=== PATIENT | male | born 1985 | race American Indian/Alaskan Native ===

== ENCOUNTER 2019-12-26 22:33 | Inpatient (IN) | payer OTHER ==
[2019-12-26] MEDS ORDERED: SODIUM CHLORIDE 0.9% 1000 ML IV SOLN IV ONE (22:52)
[2019-12-26] MEDS ORDERED: ONDANSETRON 4 MG/2 ML INJ IV ONE (22:53)
[2019-12-26] MEDS ORDERED: ACETAMINOPHEN 500 MG TAB PO ONE (22:54)
[2019-12-26] MEDS ORDERED: PIPERACILLIN/TAZOBACTAM 3.375 3.375 GM/50 ML BAG IV ONE (22:54)
--- NOTE | 2019-12-26 22:58 | Emergency Department Report ---
ED General Adult HPI - General Chief complaint: Nausea/Vomiting/Diarrhea Stated complaint: FLU SYMPTOMS Time Seen by Provider: 12/26/19 22:52 Source: patient Mode of arrival: Ambulatory Limitations: No Limitations - History of Present Illness Initial comments: Patient is 34 years old male with no significant past medical history. Patient presented to the ER complaining of fever, chills, cough, nausea and vomiting and diarrhea for the last 2 days. Patient stated the symptoms started approximately 1 week ago with generalized fatigue and loss of appetite but since yesterday he started to have fever. Patient stated that his brother was diagnosed yesterday with influenza and pneumonia. Patient denied any recent travel outside [facility]. He also denied any contact with confirmed or suspected cases of COVID-19 at this moment however patient stated that he work at [email or web address]. - Related Data Allergies Allergy/AdvReac Type Severity Reaction Status Date / Time No Known Allergies Allergy Verified 12/26/19 22:38 ED Review of Systems ROS: Stated complaint: FLU SYMPTOMS Other details as noted in HPI Comment: All other systems reviewed and negative Constitutional: chills, fever Respiratory: cough. denies: orthopnea, shortness of breath, SOB with exertion, SOB at rest Cardiovascular: palpitations. denies: chest pain Gastrointestinal: nausea, vomiting, diarrhea. denies: abdominal pain, constipation, hematochezia Musculoskeletal: denies: back pain Neurological: weakness. denies: headache, numbness, paresthesias, confusion, abnormal gait ED Past Medical Hx - Past Medical History Previous Medical History?: No - Surgical History Past Surgical History?: Yes Additional Surgical History: nasal sinus - Social History Smoking Status: Never Smoker Substance Use Type: None ED Physical Exam - General Limitations: No Limitations General appearance: alert, in no apparent distress - Head Head exam: Present: atraumatic, normocephalic, normal inspection - Eye Eye exam: Present: normal appearance, PERRL - ENT ENT exam: Present: mucous membranes dry - Neck Neck exam: Present: normal inspection, full ROM. Absent: tenderness, meningismus, lymphadenopathy, thyromegaly - Respiratory Respiratory exam: Present: normal lung sounds bilaterally - Cardiovascular Cardiovascular Exam: Present: tachycardia. Absent: systolic murmur, diastolic murmur - GI/Abdominal GI/Abdominal exam: Present: soft, normal bowel sounds. Absent: distended, tenderness, guarding, rebound, rigid, organomegaly, mass, bruit, pulsatile mass, hernia - Back Exam Back exam: Present: normal inspection, full ROM. Absent: CVA tenderness (R), CVA tenderness (L), muscle spasm, paraspinal tenderness, vertebral tenderness - Neurological Exam Neurological exam: Present: alert, oriented X3, CN II-XII intact, normal gait, reflexes normal. Absent: motor sensory deficit - Psychiatric Psychiatric exam: Present: normal mood - Skin Skin exam: Present: warm, intact, normal color ED Course Vital Signs 12/26/19 12/26/19 12/26/19 22:38 22:41 23:00 Temperature 101.4 F H 101.4 F H Pulse Rate 122 H 122 H 107 H Respiratory 18 18 23 Rate Blood Pressure 134/78 134/78 O2 Sat by Pulse 92 92 Oximetry 12/26/19 12/26/19 12/26/19 23:16 23:30 23:40 Temperature Pulse Rate 116 H 99 H 98 H Respiratory 16 29 H 33 H Rate Blood Pressure O2 Sat by Pulse 95 94 94 Oximetry 12/26/19 12/27/19 12/27/19 23:46 00:00 00:16 Temperature Pulse Rate 95 H 96 H 96 H Respiratory 32 H 19 23 Rate Blood Pressure 101/65 101/65 O2 Sat by Pulse 94 94 95 Oximetry 12/27/19 12/27/19 12/27/19 00:30 00:40 00:46 Temperature 98.5 F Pulse Rate 93 H 96 H Respiratory 18 19 Rate Blood Pressure 101/65 101/65 O2 Sat by Pulse 94 94 Oximetry 12/27/19 01:00 Temperature Pulse Rate 89 Respiratory 33 H Rate Blood Pressure 105/61 O2 Sat by Pulse Oximetry ED Medical Decision Making - Lab Data Result diagrams: 12/26/19 Unknown 12/26/19 Unknown - EKG Data -: EKG Interpreted by Wi EKG shows normal: sinus rhythm Rate: tachycardia - EKG Data Interpretation: no acute changes - Radiology Data Radiology results: report reviewed - Medical Decision Making Patient is 34 years old male with no significant past medical history. Patient presented to the ER complaining of fever, chills, cough, nausea and vomiting and diarrhea for the last 2 days. Patient stated the symptoms started approximately 1 week ago with generalized fatigue and loss of appetite but since yesterday he started to have fever. Patient stated that his brother was diagnosed yesterday with influenza and pneumonia. Patient denied any recent travel outside [facility]. He also denied any contact with confirmed or suspected cases of COVID-19 at this moment however patient stated that he work at [email or web address]. Sepsis protocol initiated. Patient received normal saline, Zofran, Zosyn. Influenza test is negative. Chest x-ray showed bilateral lower lobe pneumonia. Online survey for suspected COVID-19 submitted by me. Patient placed in a negative pressure room in the emergency room. I discussed the patient with Dr. Paniagua, he agreed to admit the patient to medical service for further management. Critical Care Time: Yes Critical care time in (mins) excluding proc time.: 30 Critical care attestation.: If time is entered above; I have spent that time in minutes in the direct care of this critically ill patient, excluding procedure time. ED Disposition Clinical Impression: Pneumonia of both lower lobes, Sepsis Disposition: 09 OP ADMIT IP TO THIS HOSP Is pt being admited?: Yes Condition: Stable Instructions: Bacterial Pneumonia (ED)
[2019-12-26 23:13] LABS: Basophils % (Auto) 0.6 % (0.0-1.8); Hematocrit 41.7 % (35.5-45.6); Hemoglobin 14.5 gm/dl (11.8-15.2); Lymphocytes # (Auto) 1.7 K/mm3 (1.2-5.4); Lymphocytes % (Auto) 23.4 % (13.4-35.0); Mean Corpuscular HGB Conc 35 % (32-34); Mean Corpuscular Volume 77 fl (84-94); Monocytes # (Auto) 0.6 K/mm3 (0.0-0.8); Monocytes % (Auto) 8.6 % (0.0-7.3); Platelet Count 278 K/mm3 (140-440); Red Blood Count 5.42 M/mm3 (3.65-5.03); Red Cell Distribution Width 15.7 % (13.2-15.2)
--- NOTE | 2019-12-26 23:18 | XRay Report ---
CHEST 1 VIEW INDICATION: MAIN: fever,cough; Brother was dx'd with flu yesterday. States fever off and on. Loss of energy and a ppetie. N&V&D. Started about 48 hr. NOnlaboed. MAEW. Occasional cough. Dayquil at noon. . COMPARISON: None FINDINGS: SUPPORT DEVICES: None. HEART / MEDIASTINUM: No significant abnormality. LUNGS / PLEURA: Decreased lung volumes with minimum patchy parenchymal changes both lower lobes No pn eumothorax. ADDITIONAL FINDINGS: IMPRESSION: 1. Subsegmental atelectasis-pneumonia both lower lobes Signer Name: Ibrahima Johnson MD Signed: 12/26/2019 11:14 PM Workstation Name: [id number]
[2019-12-26 23:27] LABS: Alanine Aminotransferase 103 units/L (7-56); Albumin 4.2 g/dL (3.9-5); BUN/Creatinine Ratio 16; Blood Urea Nitrogen 16 mg/dL (9-20); Hemolysis Index 23
[2019-12-27 00:12] LABS: Bacteria,Urine 1+ /HPF (Negative); Bilirubin,Urine NEG (Negative); Blood,Urine NEG (Negative); Color,Urine Amber (Yellow); Mucus,Urine 3+ /HPF; Urobilinogen,Urine < 2.0 mg/dL (<2.0)
[2019-12-27] MEDS ORDERED: ONDANSETRON 4 MG/2 ML INJ IV PRN (01:19)
[2019-12-27] MEDS ORDERED: ALBUTEROL 2.5 MG/3 ML NEBU IH PRN (01:19)
--- NOTE | 2019-12-27 01:38 | History and Physical Report ---
History of Present Illness Date of examination: 12/27/19 Date of admission: 12/27/19 Chief complaint: Shortness of breath History of present illness: Patient is a 34 male with no significant medical history who presents to ER with complaints of loss of appetite, fever, chills and nausea x1 week. Patient states worsening symptoms over the past 2 days with increased fatigue and abdominal pain. He admits recent ill contact , sts his brother was recently diagnosed with influenza and pneumonia. He denies chest pains palpitations or recent travel. Past History Past Medical History: other (As noted in HPI) Past Surgical History: Other (sinus) Social history: lives with family Family history: hypertension Medications and Allergies Allergies Allergy/AdvReac Type Severity Reaction Status Date / Time No Known Allergies Allergy Verified 12/26/19 22:38 Active Meds: Active Medications Acetaminophen (Tylenol) 650 mg PO Q4H PRN PRN Reason: Pain MILD(1-3)/Fever >100.5/ELIZONDO Albuterol (Proventil) 2.5 mg IH Q3HRT PRN PRN Reason: Shortness Of Breath Famotidine (Pepcid) 10 mg IV BID JOE Ceftriaxone Sodium (Rocephin/Ns 2 Gm/100 Ml) 2 gm in 100 mls @ 200 mls/hr IV Q12HR JOE; Protocol Ondansetron HCl (Zofran) 4 mg IV Q8H PRN PRN Reason: Nausea And Vomiting Sodium Chloride (Sodium Chloride Flush Syringe 10 Ml) 10 ml IV BID JOE Sodium Chloride (Sodium Chloride Flush Syringe 10 Ml) 10 ml IV PRN PRN PRN Reason: LINE FLUSH Review of Systems All systems: negative Ears, nose, mouth and throat: nasal congestion, nasal discharge Respiratory: cough, shortness of breath Gastrointestinal: abdominal pain Exam - Physical Exam Narrative exam: - Physical Exam Narrative exam: General appearance: Present: No distress noted - EENT Eyes: Present: PERRL ENT: hearing intact, clear oral mucosa - Neck Neck: Present: supple, normal ROM - Respiratory Respiratory effort: normal Respiratory: bilateral: Clear to auscultation - Cardiovascular Heart Sounds: Present: S1 & S2. Absent: rub, click - Extremities Extremities: pulses symmetrical, No edema Peripheral Pulses: within normal limits - Abdominal General gastrointestinal: Present: , non-distended, normal bowel sounds genitourinary: Present: normal - Integumentary Integumentary: Present: clear, warm, dry - Musculoskeletal Musculoskeletal: gait normal, strength equal bilaterally - Psychiatric Psychiatric: appropriate mood/affect, intact judgment & insight - Neurologic Neurologic: CNII-XII intact, moves all extremities - Constitutional Vitals: Temp Pulse Resp BP Pulse Ox 98.5 F 89 33 H 105/61 94 12/27/19 00:40 12/27/19 01:00 12/27/19 01:00 12/27/19 01:00 12/27/19 00:46 Results - Labs CBC & Chem 7: 12/26/19 Unknown 12/26/19 Unknown Labs: Laboratory Last Values WBC 7.3 K/mm3 (4.5-11.0) 12/26/19 Unknown RBC 5.42 M/mm3 (3.65-5.03) H 12/26/19 Unknown Hgb 14.5 gm/dl (11.8-15.2) 12/26/19 Unknown Hct 41.7 % (35.5-45.6) 12/26/19 Unknown MCV 77 fl (84-94) L 12/26/19 Unknown MCH 27 pg (28-32) L 12/26/19 Unknown MCHC 35 % (32-34) H 12/26/19 Unknown RDW 15.7 % (13.2-15.2) H 12/26/19 Unknown Plt Count 278 K/mm3 (140-440) 12/26/19 Unknown Lymph % (Auto) 23.4 % (13.4-35.0) 12/26/19 Unknown Bonner % (Auto) 8.6 % (0.0-7.3) H 12/26/19 Unknown Eos % (Auto) 0.0 % (0.0-4.3) 12/26/19 Unknown Baso % (Auto) 0.6 % (0.0-1.8) 12/26/19 Unknown Lymph # 1.7 K/mm3 (1.2-5.4) 12/26/19 Unknown Bonner # 0.6 K/mm3 (0.0-0.8) 12/26/19 Unknown Eos # 0.0 K/mm3 (0.0-0.4) 12/26/19 Unknown Baso # 0.0 K/mm3 (0.0-0.1) 12/26/19 Unknown Seg Neutrophils % 67.4 % (40.0-70.0) 12/26/19 Unknown Seg Neutrophils # 4.9 K/mm3 (1.8-7.7) 12/26/19 Unknown Sodium 137 mmol/L (137-145) 12/26/19 Unknown Potassium 4.2 mmol/L (3.6-5.0) 12/26/19 Unknown Chloride 97.2 mmol/L (98-107) L 12/26/19 Unknown Carbon Dioxide 26 mmol/L (22-30) 12/26/19 Unknown Anion Gap 18 mmol/L 12/26/19 Unknown BUN 16 mg/dL (9-20) 12/26/19 Unknown Creatinine 1.0 mg/dL (0.8-1.5) 12/26/19 Unknown Estimated GFR > 60 ml/min 12/26/19 Unknown BUN/Creatinine Ratio 16 % 12/26/19 Unknown Glucose 116 mg/dL (75-100) H 12/26/19 Unknown Lactic Acid 1.20 mmol/L (0.7-2.0) 12/26/19 Unknown Calcium 9.0 mg/dL (8.4-10.2) 12/26/19 Unknown Total Bilirubin 0.70 mg/dL (0.1-1.2) 12/26/19 Unknown AST 86 units/L (5-40) H 12/26/19 Unknown ALT 103 units/L (7-56) H 12/26/19 Unknown Alkaline Phosphatase 69 units/L (35-129) 12/26/19 Unknown Total Protein 8.0 g/dL (6.3-8.2) 12/26/19 Unknown Albumin 4.2 g/dL (3.9-5) 12/26/19 Unknown Albumin/Globulin Ratio 1.1 % 12/26/19 Unknown Urine Color Cindi (Yellow) 12/26/19 23:40 Urine Turbidity Clear (Clear) 12/26/19 23:40 Urine pH 5.0 (5.0-7.0) 12/26/19 23:40 Ur Specific [place] 1.043 (1.003-1.030) H 12/26/19 23:40 Urine Protein 100 mg/dl mg/dL (Negative) 12/26/19 23:40 Urine Glucose (UA) Neg mg/dL (Negative) 12/26/19 23:40 Urine Ketones Tr mg/dL (Negative) 12/26/19 23:40 Urine Blood Neg (Negative) 12/26/19 23:40 Urine Nitrite Neg (Negative) 12/26/19 23:40 Urine Bilirubin Neg (Negative) 12/26/19 23:40 Urine Urobilinogen < 2.0 mg/dL (<2.0) 12/26/19 23:40 Ur Leukocyte Esterase Neg (Negative) 12/26/19 23:40 Urine WBC (Auto) 6.0 /HPF (0.0-6.0) 12/26/19 23:40 Urine RBC (Auto) 3.0 /HPF (0.0-6.0) 12/26/19 23:40 U Epithel Cells (Auto) < 1.0 /HPF (0-13.0) 12/26/19 23:40 Urine Bacteria (Auto) 1+ /HPF (Negative) 12/26/19 23:40 Urine Mucus 3+ /HPF 12/26/19 23:40 Influenza A (Rapid) Negative (Negative) 12/27/19 00:00 Influenza B (Rapid) Negative (Negative) 12/27/19 00:00 - Imaging and Cardiology Chest x-ray: report reviewed Imaging and Cardiology: CHEST 1 VIEW INDICATION: MAIN: fever,cough; Brother was dx'd with flu yesterday. States fever off and on. Loss of energy and appetie. N V D. Started about 48 hr. NOnlaboed. MAEW. Occasional cough. Dayquil at noon. . COMPARISON: None FINDINGS: SUPPORT DEVICES: None. HEART / MEDIASTINUM: No significant abnormality. LUNGS / PLEURA: Decreased lung volumes with minimum patchy parenchymal changes both lower lobes No pneumothorax. ADDITIONAL FINDINGS: IMPRESSION: 1. Subsegmental atelectasis-pneumonia both lower lobes Majano/IV: IV Catheter Type [left ac] Peripheral IV IV Catheter Type [right ac] Peripheral IV Assessment and Plan Assessment and plan: Patient seen in conjunction with Dr. Son, who agrees with plan of care. [place], bilateral -CXR shows Subsegmental atelectasis-pneumonia both lower lobes -Blood Cultures pending -Albuterol PRN -Start on IV Abx Sepsis --Online survey for suspected COVID-19 submitted by ED -Tachycardic with heart rate 122 bpm -Febrile 101.4 -C chest x-ray shows bilateral lobe consolidation -On IV Abx -Cultures pending -Continue supportive care DVT prophylaxis -SCDs bilateral extremities Advance Directives: No VTE prophylaxis?: Mechanical Plan of care discussed with patient/family: Yes
[2019-12-27] MEDS ORDERED: cefTRIAXone/NS 2 GM/100 ML 2 GM/100 ML BAG IV SCH (10:00)
[2019-12-27] MEDS: FAMOTIDINE 20 MG/2 ML INJ IV SCH ×2 (10:11→23:56)
[2019-12-27] MEDS: cefTRIAXone/NS 2 GM/100 ML 2 GM/100 ML BAG IV SCH (10:11)
[2019-12-27] MEDS: SODIUM CHLORIDE 0.9% 1000 ML 1,000 ML IV SCH ×2 (10:12→23:56)
[2019-12-27] MEDS: ACETAMINOPHEN 325 MG TAB PO PRN ×2 (11:07→18:04)
[2019-12-27] MEDS: AZITHROMYCIN 500 MG in SODIUM CHLORIDE 0.9% 250ML 250 ML IV SCH (11:07)
--- NOTE | 2019-12-27 14:24 | Consultation ---
History of Present Illness - Reason for Consult Consult date: 12/27/19 - History of Present Illness 34-year-old male no past medical history admitted to the hospital with complaints of fever, chills, nausea for the past week. He notes the symptoms began acutely worse 2 days prior to admission, and were associated with fatigue and abdominal pain. While he denies any recent travel, he does report that his brother was recently diagnosed with influenza and pneumonia. He otherwise denies symptoms at this time. Febrile to 100.1 with a normal white count of 7. Currently receiving ceftriaxo ne and azithromycin. Influenza is negative, blood cultures are pending. He has transaminitis as well. Imaging personally reviewed: Chest x-ray: Pneumonia bilaterally in the lower lobes. Review of Systems: Bold if positive, otherwise negative General: fevers, chills, rigors HEENT: visual disturbance, diplopia, eye pain Respiratory: cough, sputum, hemoptysis, shortness of breath Cardiovascular: chest pain, syncope Gastrointestinal: nausea, vomiting, diarrhea, abdominal pain Genitourinary: dysuria, hematuria, flank pain Musculoskeletal: neck pain, back pain, joint pain, edema Neurologic: headaches, seizures Hematologic: easy bruising or bleeding Endocrine: night sweats, acute weight loss Skin: rash, jaundice, redness Psychiatric: suicidal, homicidal ideation Past History Past Medical History: other (As noted in HPI) Past Surgical History: Other (sinus) Social history: lives with family Family history: hypertension Medications and Allergies Allergies Allergy/AdvReac Type Severity Reaction Status Date / Time No Known Allergies Allergy Verified 12/26/19 22:38 Active Meds: Active Medications Acetaminophen (Tylenol) 650 mg PO Q4H PRN PRN Reason: Pain MILD(1-3)/Fever >100.5/ELIZONDO Last Admin: 12/27/19 11:07 Dose: 650 mg Documented by: Albuterol (Proventil) 2.5 mg IH Q3HRT PRN PRN Reason: Shortness Of Breath Famotidine (Pepcid) 10 mg IV BID JOE Last Admin: 12/27/19 10:11 Dose: 10 mg Documented by: Ceftriaxone Sodium (Rocephin/Ns 2 Gm/100 Ml) 2 gm in 100 mls @ 200 mls/hr IV Q24HR JOE; Protocol Last Admin: 12/27/19 10:11 Dose: 200 mls/hr Documented by: Azithromycin 500 mg/ Sodium (Chloride) 250 mls @ 250 mls/hr IV Q24HR JOE; Protocol Last Admin: 12/27/19 11:07 Dose: 250 mls/hr Documented by: Sodium Chloride (Nacl 0.9% 1000 Ml) 1,000 mls @ 100 mls/hr IV DIRECT JOE Last Admin: 12/27/19 10:12 Dose: 100 mls/hr Documented by: Ondansetron HCl (Zofran) 4 mg IV Q8H PRN PRN Reason: Nausea And Vomiting Sodium Chloride (Sodium Chloride Flush Syringe 10 Ml) 10 ml IV BID JOE Last Admin: 12/27/19 10:12 Dose: 10 ml Documented by: Sodium Chloride (Sodium Chloride Flush Syringe 10 Ml) 10 ml IV PRN PRN PRN Reason: LINE FLUSH Physical Examination - Physical Exam Narrative exam: Physical Exam: Constitutional: Alert, cooperative. No acute distress Head, Ears, Nose: Normocephalic, atraumatic. External ears, nose normal Eyes: Conjunctivae/corneas clear. No icterus. No ptosis. Neck: Supple, no meningeal signs Oral: dentition fair, no thrush Cardiovascular: S1, S2 normal. Respiratory: Good air entry, clear to auscultation bilaterally GI: Soft, non-tender; bowel sounds normal. No peritoneal signs. Musculoskeletal: No pedal edema, no cyanosis. Skin: No rash or abscess Hem/Lymphatic: No palpable cervical or supraclavicular nodes. No lymphangitis Psych: Mood ok. Affect normal Neurological: Awake, alert, oriented. No gross abnormality - Constitutional Vitals: Vital Signs Temp Pulse Resp BP Pulse Ox 101.1 F H 89 18 168/149 97 12/27/19 10:45 12/27/19 13:00 12/27/19 09:50 12/27/19 13:00 12/27/19 13:00 Temperature -Last 24 Hours Temperature 101.1 F Temperature 98.3 F Temperature 98.5 F Temperature 101.4 F Temperature 101.4 F Results - Labs CBC & Chem 7: 12/26/19 Unknown 12/26/19 Unknown Labs: Abnormal lab results 12/26/19 12/26/19 12/26/19 Range/Units 23:40 Unknown Unknown RBC 5.42 H (3.65-5.03) M/mm3 MCV 77 L (84-94) fl MCH 27 L (28-32) pg MCHC 35 H (32-34) % RDW 15.7 H (13.2-15.2) % Gonzales % (Auto) 8.6 H (0.0-7.3) % Chloride 97.2 L (98-107) mmol/L Glucose 116 H (75-100) mg/dL AST 86 H (5-40) units/L ALT 103 H (7-56) units/L Ur Specific [place] 1.043 H (1.003-1.030) Assessment and Plan Cultures: Blood culture 12/26/2019 no growth to date Influenza: Negative A/P: 34-year-old man no past medical history admitted to the hospital with large gastrointestinal complaints, found to have bilateral pneumonia on imaging. #COVID-19 rule out: Patient with gastrointestinal symptoms which can be consistent with COVID-19. Transaminitis prevalent as well. Patient has bilateral PNA with fevers and a normal white count, all of which are in keeping with a possible diagnosis. Survey has been sent to [facility] by primary team, which I greatly appreciate. #Bilateral pneumonia: Suspect viral etiology, will obtain procalcitonin for morning labs. Continue ceftriaxone and azithromycin in the meantime. #Transaminitis Recs: -Follow-up COVID-[address] [facility] -Continue empiric ceftriaxone and azithromycin -Ordered procalcitonin for the morning labs -Trend transaminases to ensure improvement Thank you for the consult, will continue to follow Charo Juan MD [facility] M: [phone] O: [phone] F: [phone]
--- NOTE | 2019-12-27 14:35 | Event Note ---
Date: 12/27/19 34-year-old male admitted earlier this morning for the management of bilateral pneumonia, suspected COVID-19 infection. Patient is still febrile and tachycardic. Patient is on IV antibiotics. ID was consulted for the management of COVID-19. Please refer to the H&P that was done this morning for details.
[2019-12-28] MEDS: AZITHROMYCIN 500 MG in SODIUM CHLORIDE 0.9% 250ML 250 ML IV SCH (10:17)
[2019-12-28] MEDS: cefTRIAXone/NS 2 GM/100 ML 2 GM/100 ML BAG IV SCH (10:17)
[2019-12-28] MEDS: FAMOTIDINE 20 MG/2 ML INJ IV SCH (10:18)
--- NOTE | 2019-12-28 10:47 | Discharge Summary ---
Providers - Providers Date of Admission: 12/27/19 02:49 Attending physician: JASMIN MCGOVERN MD 12/27/19 09:51 Consult to Physician [CONS] Routine Comment: Consulting Provider: YUE BROWNING Physician Instructions: Reason For Exam: sepsis, suspected COVID-19 Primary care physician: AUDIO PRODUCTION ENGINEER Hospitalization Reason for admission: Pneumonia, suspected COVID-19 Condition: Stable Pertinent studies: CXR Hospital course: Patient is a 34 male with no significant medical history who presents to ER with complaints of loss of appetite, fever, chills and nausea x1 week. Patient states worsening symptoms over the past 2 days with increased fatigue and abdominal pain. He admits recent ill contact , sts his brother was recently diagnosed with influenza and pneumonia. He denies chest pains palpitations or recent travel. Patient was seen and evaluated this morning, patient was doing well. Patient does not have any shortness of breath, does not need oxygen. Patient is doing well. No fever overnight. He has cough which is getting better. Patient will be discharged home. Patient advised to have self quarantine himself for 2 weeks, the nurse also give him written instruction. [facility] will follow for the result of COVID-19. CXR showed bilateral lower lobe pneumonia and was treated with IV antibiotics and given po antibiotics at discharge. Disposition: - TO HOME OR SELFCARE Time spent for discharge: 34 minutes - Discharge Diagnoses (1) Pneumonia of both lower lobes Status: Acute Qualifiers: Pneumonia type: due to unspecified organism Qualified Code(s): J18.9 - Pneumonia, unspecified organism (2) Sepsis Status: Acute Qualifiers: Sepsis type: sepsis due to unspecified organism Sepsis acute organ dysfunction status: without acute organ dysfunction Qualified Code(s): A41.9 - Sepsis, unspecified organism (3) Suspected 2019-nCoV infection Status: Acute Core Measure Documentation - Palliative Care Palliative Care/ Comfort Measures: Not Applicable - Core Measures Any of the following diagnoses?: none Exam - Physical Exam Narrative exam: Not in cardiopulmonary distress. The patient appeared well nourished and normally developed. Vital signs as documented. Head exam is unremarkable. No scleral icterus . Neck is without jugular venous distension, thyromegaly, or carotid bruits. Lungs are clear to auscultation. Cardiac exam reveals regular rate and Rhythm. Abdominal exam reveals normal bowel sounds, nontender, no organomegaly. Extremities are nonedematous and both femoral and pedal pulses are normal. INSTRUCTIONAL SYSTEMS DESIGN CONSULTANT: Alert and oriented 3. No focal weakness. - Constitutional Vitals: Temp Pulse Resp BP Pulse Ox 99.5 F 96 H 18 137/86 93 12/28/19 02:03 12/28/19 02:03 12/28/19 02:03 12/28/19 02:03 12/28/19 02:03 Plan Activity: no restrictions Weight Bearing Status: Full Weight Bearing Diet: regular Follow up with: PRIMARY CARE, [Primary Care Provider] - 3-5 Days Prescriptions: cephALEXin [Keflex] 500 mg PO Q8HR #18 cap guaiFENesin [Robitussin] 200 mg PO Q4HR #1 udc Azithromycin [Zithromax Z-MARY] 250 mg PO DAILY #5 tablet
[2019-12-28 11:21] LABS: BUN/Creatinine Ratio 11; Blood Urea Nitrogen 10 mg/dL (9-20); Calcium 8.3 mg/dL (8.4-10.2); Hemolysis Index 28
[2019-12-28 14:13] VITALS: BP 119/79
--- NOTE | 2019-12-28 15:21 | Progress Note ---
Assessment and Plan Cultures: Blood culture 12/26/2019 no growth to date Influenza: Negative A/P: 34-year-old man no past medical history admitted to the hospital with large gastrointestinal complaints, found to have bilateral pneumonia on imaging. #COVID-19 rule out: Patient with gastrointestinal symptoms which can be consistent with COVID-19. Transaminitis prevalent as well. Patient has bilateral PNA with fevers and a normal white count, all of which are in keeping with a possible diagnosis. Survey has been sent to [facility] by primary elliot weston, which I greatly appreciate. #Bilateral pneumonia: Suspect viral etiology, will obtain procalcitonin for morning labs. Continue ceftriaxone and azithromycin in the meantime. #Transaminitis Recs: -Follow-up COVID-19 testing from [facility]. Given his symptoms I feel this is a fairly likely diagnosis. -Continue empiric ceftriaxone and azithromycin -Trend transaminases to ensure improvement -Normal procalcitonin, most likely of viral etiology with pneumonia. As such do not believe he needs antibiotics on discharge. - Patient may be discharged when medically stable if testing swabs have been obtained. Upon discharge patient should self-quarantine at home until COVID testing returns. If negative, self-quarantine may end. If positive patient should self-quarantine for 14 days from symptom beginning. Public health and infection prevention will follow up with patients to notify them of their test results. Patients should return to hospital regardless if they have worsening fevers or respiratory status. Thank you for the consult, will continue to follow Charo Juan MD [facility] ([facility]) M: [phone] O: [phone] F: [phone] Subjective Date of service: 12/28/19 Interval history: Patient feels improved at this time, has been afebrile for the last 24 hours w ith a normal white count. Objective - Exam Narrative Exam: Physical Exam: Constitutional: Alert, cooperative. No acute distress Eyes: Conjunctivae/corneas clear. No icterus. No ptosis. Neck: Supple, no meningeal signs Oral: dentition fair, no thrush Cardiovascular: S1, S2 normal. Respiratory: Good air entry, clear to auscultation bilaterally GI: Soft, non-tender; bowel sounds normal. No peritoneal signs. Musculoskeletal: No pedal edema, no cyanosis. Skin: No rash or abscess Hem/Lymphatic: No palpable cervical or supraclavicular nodes. No lymphangitis Psych: Mood ok. Affect normal Neurological: Awake, alert, oriented. No gross abnormality - Constitutional Vitals: Vital Signs Temp Pulse Resp BP Pulse Ox 99.3 F 91 H 22 119/79 94 12/28/19 12:11 12/28/19 12:11 12/28/19 12:11 12/28/19 12:11 12/28/19 13:15 Temperature -Last 24 Hours Temperature 99.3 F Temperature 99.5 F Temperature 99 F - Labs CBC & Chem 7: 12/26/19 Unknown 12/28/19 10:28 Labs: Abnormal lab results 12/28/19 Range/Units 10:28 Carbon Dioxide 21 L (22-30) mmol/L Glucose 115 H (75-100) mg/dL Calcium 8.3 L (8.4-10.2) mg/dL
[2019-12-29] MEDS ORDERED: AZITHROMYCIN 250 MG TAB PO SCH (10:00)
== END 2019-12-28 15:15 | disposition home or self-care (01) | DRG 871 ==
LOC: ED 22:33 → 4A 12-27 02:49 → 3A 12-28 00:54
PROVIDERS: ADMIT Internal Medicine Geriatric Medicine; ATTEND Internal Medicine
DX: A41.9 Sepsis, unspecified organism (principal); J18.9 Pneumonia, unspecified organism; R74.0 Nonspecific elevation of levels of transaminase and lactic acid dehydrogenase [LDH]; J10.1 Influenza due to other identified influenza virus with other respiratory manifestations; Z82.49 Family history of ischemic heart disease and other diseases of the circulatory system
CPT/HCPCS: 36415; 71045; 80048; 80053; 81001; 82140; 84145; 85025; 87040; 87400; 93005; 93010; 94760; 96365; G0378; 87502; J0456; J0696; J2405; J2543; J7030; J7050